=== PATIENT | female | born 1980 | race Caucasian/White ===

== ENCOUNTER 2018-05-15 11:05 | Observation (INO) | payer MEDICAID ==
[~2018-05-15] VITALS: Ht 172 cm; Wt 93.0 kg
[2018-05-15 11:55] VITALS: BP 119/58
[2018-05-15] MEDS ORDERED: PREN-143 PO (11:58)
== END 2018-05-15 12:25 | disposition home or self-care (01) ==
LOC: 4S 11:05
PROVIDERS: ADMIT Obstetrics & Gynecology; ATTEND Obstetrics & Gynecology
DX: O09.523 Supervision of elderly multigravida, third trimester (principal); Z3A.33 33 weeks gestation of pregnancy
CPT/HCPCS: 81002; G0378

== ENCOUNTER 2018-05-18 11:15 | Observation (INO) | payer MEDICAID ==
[~2018-05-18] VITALS: Ht 172 cm; Wt 91.1 kg
[~2018-05-18 11:15] MED LIST: PREN-143 PO
[2018-05-18] MEDS ORDERED: FERR-89 PO (11:48)
[2018-05-18 11:49] VITALS: BP 117/70
== END 2018-05-18 14:35 | disposition home or self-care (01) ==
LOC: 4S 11:15
PROVIDERS: ADMIT Obstetrics & Gynecology; ATTEND Obstetrics & Gynecology
DX: O09.523 Supervision of elderly multigravida, third trimester (principal); Z3A.34 34 weeks gestation of pregnancy
CPT/HCPCS: 81002; G0378

== ENCOUNTER 2018-05-18 16:22 | Observation (INO) | payer MEDICAID ==
[~2018-05-18] VITALS: Ht 172 cm; Wt 92.5 kg
[~2018-05-18 16:22] MED LIST changes: +FERR-89 PO
[2018-05-25 12:51] VITALS: BP 124/60
== END 2018-05-25 12:25 | disposition home or self-care (01) ==
LOC: 4S 05-25 11:10
PROVIDERS: ADMIT Obstetrics & Gynecology; ATTEND Obstetrics & Gynecology
DX: O09.523 Supervision of elderly multigravida, third trimester (principal); Z3A.35 35 weeks gestation of pregnancy
CPT/HCPCS: 81002; G0378

== ENCOUNTER 2018-05-25 17:54 | Observation (INO) | payer MEDICAID ==
[~2018-05-25] VITALS: Ht 165.1 cm; Wt 92.5 kg
[2018-05-29 11:48] VITALS: BP 119/70
== END 2018-05-29 12:05 | disposition home or self-care (01) ==
LOC: 4S 05-29 11:10
PROVIDERS: ADMIT Obstetrics & Gynecology; ATTEND Obstetrics & Gynecology
DX: O09.523 Supervision of elderly multigravida, third trimester (principal); Z3A.35 35 weeks gestation of pregnancy
CPT/HCPCS: 81002; G0378

== ENCOUNTER 2018-06-01 11:00 | Observation (INO) | payer MEDICAID ==
[~2018-06-01] VITALS: Ht 165.1 cm; Wt 92.5 kg
[2018-06-01 11:54] VITALS: BP 118/69
== END 2018-06-01 13:34 | disposition home or self-care (01) ==
LOC: 4S 11:00
PROVIDERS: ADMIT Obstetrics & Gynecology; ATTEND Obstetrics & Gynecology
DX: O09.523 Supervision of elderly multigravida, third trimester (principal); Z3A.36 36 weeks gestation of pregnancy
CPT/HCPCS: 81002; G0378

== ENCOUNTER 2018-06-02 08:13 | Observation (INO) | payer MEDICAID ==
[~2018-06-02] VITALS: Ht 172.7 cm; Wt 90.0 kg
[2018-06-08 11:30] VITALS: BP 116/67
== END 2018-06-08 12:00 | disposition home or self-care (01) ==
LOC: 4S 06-08 11:05
PROVIDERS: ADMIT Obstetrics & Gynecology; ATTEND Obstetrics & Gynecology
DX: O09.523 Supervision of elderly multigravida, third trimester (principal); Z3A.37 37 weeks gestation of pregnancy

== ENCOUNTER 2018-06-15 11:05 | Observation (INO) | payer MEDICAID ==
[~2018-06-15] VITALS: Ht 182.9 cm; Wt 94.3 kg
[2018-06-15 11:43] VITALS: BP 119/69
== END 2018-06-15 12:10 | disposition home or self-care (01) ==
LOC: 4S 11:05
PROVIDERS: ADMIT Obstetrics & Gynecology; ATTEND Obstetrics & Gynecology
DX: O09.523 Supervision of elderly multigravida, third trimester (principal); Z3A.38 38 weeks gestation of pregnancy

== ENCOUNTER 2018-06-20 05:40 | Inpatient (IN) | payer MEDICAID ==
[~2018-06-20] VITALS: Ht 165.1 cm; Wt 94.3 kg
[2018-06-20] MEDS ORDERED: RINGERS SOLUTION,LACTATED 1,000 ML IV ONE ×2 (05:49→07:01)
[2018-06-20] MEDS ORDERED: CITRIC ACID/SODIUM CITRATE 30 ML SOLUTION UDCUP PO ONE (06:00)
[2018-06-20] MEDS ORDERED: METOCLOPRAMIDE HCL 5 MG/ML 2 ML VIAL IVP ONE (06:00)
[2018-06-20 06:47] LABS: BASOPHILS % (AUTO) 0.5 % (0.0-2.0); EOSINOPHILS % (AUTO) 0.9 % (1.0-6.0); HEMATOCRIT 27.3 % (36-46); HEMOGLOBIN 8.8 g/dL (12.0-16.0); LYMPHOCYTES # (AUTO) 3.3 K/uL (1.0-4.8); LYMPHOCYTES % (AUTO) 29.8 % (22.0-44.0); MEAN CORPUSCULAR HEMOGLOBIN 24.1 pg (26.0-34.0); MEAN CORPUSCULAR HGB CONC 32.2 G/dL (31.0-37.0); MEAN CORPUSCULAR VOLUME 75 fL (80-100); MONOCYTES # (AUTO) 0.8 K/uL (0.1-1.0); NEUTROPHILS # (AUTO) 6.7 K/uL (1.8-7.7); NEUTROPHILS % (AUTO) 61.8 % (40.0-70.0); PLATELET COUNT (AUTO) 267 K/uL (150-450); RED BLOOD CELL COUNT(AUTO) 3.65 MIL/uL (4.00-5.20); RED CELL DISTRIBUTION WIDTH 14.7 % (11.5-14.5)
[2018-06-20 06:56] VITALS: BP 126/73
[2018-06-20] MEDS ORDERED: BUPIVACAINE HCL/DEX-WATER/PF 0.75% 2 ML AMP ONE (07:01)
[2018-06-20] MEDS ORDERED: SODIUM CHLORIDE 0.9% 1,000 ML IV ONE (07:01)
[2018-06-20] MEDS ORDERED: METHYLERGONOVINE MALEATE 0.2 MG/ML VIAL ONE (08:16)
[2018-06-20] MEDS ORDERED: FentaNYL CITRATE-PF 100 MCG/2 ML VIAL IVP PRN ×2 (08:30→08:45)
[2018-06-20] MEDS ORDERED: HYDROmorphone 2 MG/ML SYRINGE IVP PRN (08:30)
[2018-06-20] MEDS ORDERED: KETOROLAC TROMETHAMINE 30 MG/ML VIAL IVP SCH (08:45)
[2018-06-20] MEDS ORDERED: ONDANSETRON HCL 4 MG/2 ML VIAL IVP PRN (08:45)
[2018-06-20] MEDS ORDERED: NALOXONE HCL 0.4 MG/ML VIAL IVP PRN (08:45)
[2018-06-20] MEDS ORDERED: MORPHINE SULFATE 10 MG/ML SYRINGE IVP PRN (08:45)
[2018-06-20] MEDS ORDERED: DiphenhydrAMINE HCL 50 MG/ML VIAL IVP PRN (08:45)
[2018-06-20] MEDS ORDERED: NALBUPHINE HCL 10 MG/ML VIAL IVP PRN ×2 (08:45)
[2018-06-20] MEDS ORDERED: OXYTOCIN 30 UNITS/LACT RINGERS 500 ML IV ONE (08:49)
[2018-06-20] MEDS ORDERED: OxyCODONE HCL/ACETAMINOPHEN 5-325 MG TABLET PO PRN ×2 (09:00)
[2018-06-20] MEDS ORDERED: LANOLIN 7 GM OINTMENT TP PRN (09:00)
[2018-06-20] MEDS ORDERED: ACETAMINOPHEN 1000 MG/ISO-OSM 100 ML IV ONE (09:14)
[2018-06-20] MEDS: ACETAMINOPHEN 1000 MG/ISO-OSM 100 ML IV SCH ×2 (09:18→17:14)
[2018-06-20] MEDS: RINGERS SOLUTION,LACTATED 1,000 ML IV SCH ×2 (10:14→20:10)
[2018-06-20] MEDS ORDERED: 0.9% SODIUM CHLORIDE 10 ML VIAL IVP ONE (12:00)
[2018-06-20] MEDS ORDERED: ONDANSETRON HCL 4 MG/2 ML VIAL IVP ONE (12:00)
[2018-06-20] MEDS ORDERED: OXYTOCIN 10 UNITS/ML VIAL IM ONE (12:00)
[2018-06-20] MEDS ORDERED: EPHEDrine SULFATE 50 MG/ML VIAL IM ONE (12:00)
[2018-06-20] MEDS ORDERED: MORPHINE SULFATE/PF 0.5 MG/ML 10 ML AMP IVP ONE (12:00)
[2018-06-20] MEDS ORDERED: FentaNYL CITRATE-PF 100 MCG/2 ML VIAL IVP ONE (12:00)
[2018-06-20] MEDS ORDERED: OXYGEN THERAPY IH SCH ×3 (20:00)
[2018-06-20] MEDS: MAGNESIUM HYDROXIDE SUSPENSION 30 ML UDCUP PO SCH (21:00)
[2018-06-21 06:04] LABS: BASOPHILS % (AUTO) 0.8 % (0.0-2.0); EOSINOPHILS % (AUTO) 0.1 % (1.0-6.0); HEMATOCRIT 26.2 % (36-46); HEMOGLOBIN 8.5 g/dL (12.0-16.0); LYMPHOCYTES # (AUTO) 1.8 K/uL (1.0-4.8); LYMPHOCYTES % (AUTO) 8.8 % (22.0-44.0); MEAN CORPUSCULAR HEMOGLOBIN 24.2 pg (26.0-34.0); MEAN CORPUSCULAR HGB CONC 32.4 G/dL (31.0-37.0); MEAN CORPUSCULAR VOLUME 75 fL (80-100); MONOCYTES # (AUTO) 1.2 K/uL (0.1-1.0); MONOCYTES % (AUTO) 5.6 % (2.0-9.0); NEUTROPHILS # (AUTO) 17.5 K/uL (1.8-7.7); NEUTROPHILS % (AUTO) 84.7 % (40.0-70.0); PLATELET COUNT (AUTO)-OB 297 K/uL (150-450); RED BLOOD CELL COUNT(AUTO) 3.51 MIL/uL (4.00-5.20); RED CELL DISTRIBUTION WIDTH 14.4 % (11.5-14.5)
[2018-06-21] MEDS: MAGNESIUM HYDROXIDE SUSPENSION 30 ML UDCUP PO SCH ×2 (08:07→20:14)
[2018-06-21] MEDS: IBUPROFEN 800 MG TABLET PO PRN ×3 (08:08→23:31)
[2018-06-22 05:57] LABS: BASOPHILS % (AUTO) 0.2 % (0.0-2.0); EOSINOPHILS % (AUTO) 0.4 % (1.0-6.0); HEMATOCRIT 23.1 % (36-46); HEMOGLOBIN 7.6 g/dL (12.0-16.0); LYMPHOCYTES # (AUTO) 2.6 K/uL (1.0-4.8); LYMPHOCYTES % (AUTO) 16.5 % (22.0-44.0); MEAN CORPUSCULAR HEMOGLOBIN 24.6 pg (26.0-34.0); MEAN CORPUSCULAR VOLUME 75 fL (80-100); MONOCYTES # (AUTO) 0.9 K/uL (0.1-1.0); MONOCYTES % (AUTO) 5.8 % (2.0-9.0); NEUTROPHILS # (AUTO) 12.3 K/uL (1.8-7.7); NEUTROPHILS % (AUTO) 77.1 % (40.0-70.0); PLATELET COUNT (AUTO)-OB 297 K/uL (150-450); RED BLOOD CELL COUNT(AUTO) 3.09 MIL/uL (4.00-5.20); RED CELL DISTRIBUTION WIDTH 14.2 % (11.5-14.5)
[2018-06-22] MEDS: MAGNESIUM HYDROXIDE SUSPENSION 30 ML UDCUP PO SCH (08:16)
[2018-06-22] MEDS ORDERED: IBUP-2071 PO (09:04)
[2018-06-22] MEDS ORDERED: DSS100 PO (09:04)
[2018-06-22] MEDS ORDERED: PERCT PO (09:05)
[2018-06-22] MEDS ORDERED: FERR-89 PO (09:05)
== END 2018-06-22 10:45 | disposition home or self-care (01) | DRG 540 ==
LOC: 4S 05:40 → PREOBSVTOIN 07-12 05:52
PROVIDERS: ADMIT Obstetrics & Gynecology; ATTEND Obstetrics & Gynecology
PROC: 10D00Z1 Extraction of Products of Conception, Low, Open Approach (ICD-10-PCS; principal; 2018-06-20)
DX: O34.211 Maternal care for low transverse scar from previous cesarean delivery (principal); Z37.0 Single live birth; Z3A.39 39 weeks gestation of pregnancy
CPT/HCPCS: 86850; 86900; 86901; 86920; 87081; J0131; J0690; J2210; J2274; J2405; J2590; J2765; J3010; J3490; J7030; J7120